=== PATIENT | male | born 2000 | race African-American/Black ===

== ENCOUNTER 2023-05-06 14:51 | Emergency (ER) | payer SELFPAY ==
[2023-05-06 15:01] VITALS: BMI 20.9
[2023-05-06] MEDS ORDERED: DOXYCYCLINE HYCLATE 100 MG CAPSULE PO ONE ×2 (17:14→17:28)
[2023-05-06 17:42] LABS: EPI CELLS 2 /uL (0-25.1); HYALINE CASTS 1 /uL (0-3.1); URINE APPEARANCE CLEAR; URINE BACTERIA 4 /uL (0-1359); URINE BILIRUBIN NEGATIVE (NEGATIVE); URINE COLOR YELLOW; URINE GLUCOSE (UA) NEGATIVE (NEGATIVE); URINE KETONE NEGATIVE (NEGATIVE); URINE LEUK ESTERASE TRACE (NEGATIVE); URINE NITRITE NEGATIVE (NEGATIVE); URINE PROTEIN NEGATIVE (NEGATIVE); URINE RBC 1 /uL (0-23.9); URINE WBC 24 /uL (0-25.8)
[2023-05-06 18:09] VITALS: BP 121/77; PULSE 55; RESP 16; TEMP 97.8
== END 2023-05-06 18:10 | disposition home or self-care (01) ==
LOC: JERFT 14:51 → JER 14:51 → JERFT 18:10
DX: R36.9 Urethral discharge, unspecified (principal); R30.0 Dysuria; Z11.3 Encounter for screening for infections with a predominantly sexual mode of transmission
CPT/HCPCS: 36415; 81003; 87086; 87491; 87591; 99284-25